=== PATIENT | male | born 1965 | race Caucasian/White ===

== ENCOUNTER → 2021-07-07 | Outpatient (CLI) | payer BC, OTHER ==
--- NOTE | 2021-07-07 13:50 | PFTRPT ---
Site: [facility], [address] [place] [address], [id number] ID: [id number] Name: HENRY DRAKE Visit Date: 07/07/2021 Second ID: [id number] Referring Doctor: Tracey Regalado Reviewing Doctor: Ken Chaidez MD Sound Printer: Jose KELSEY RRT Age: 55 : 1965 Sex: Male Race: Height: 70.00 Inches Weight: 182.00 Lbs BSA: 2.01 Order IDs: [id number] Requested Test(s): <RESP-PFT.PFT B/A> Diagnosis: R06.02 test meet the ATS standards for acceptability and repeatability. Pt was given four puffs of albuterol for post bronchodilator. Review Status: Not Reviewed Pre-Bronch Post-Bronch Pred Actual %Pred Actual %Chng SPIROMETRY FVC (L) 4.87 4.33 88 4.49 3 FEV1 (L) 3.71 3.15 84 3.36 6 FEV1/FVC (%) 76 73 95 75 2 FEF 25% (L/sec) 7.41 6.33 85 7.38 16 FEF 50% (L/sec) 4.52 2.98 65 3.53 18 FEF 75% (L/sec) 1.48 0.67 45 1.07 59 FEF 25-75% (L/sec) 3.13 2.04 65 2.80 37 FEF Max (L/sec) 9.44 8.17 86 8.56 4 FIVC (L) 4.04 4.09 1 FIF 50% (L/sec) 4.80 5.52 114 5.00 -9 FIF Max (L/sec) 5.53 5.07 -8 MVV (L/min) 144 110 76 Expiratory Time (sec) 7.47 6.57 -12 Back Extrap Vol (L) 0.15 0.15 Time To FEFmax (sec) 0.088 0.092 3 LUNG VOLUMES SVC (L) 4.80 4.15 86 IC (L) 3.37 2.83 83 ERV (L) 1.43 1.32 92 TGV (L) 3.61 4.24 117 RV (Pleth) (L) 2.18 2.91 133 TLC (Pleth) (L) 6.98 7.07 101 RV/TLC (Pleth) (%) 32 41 128 DIFFUSION DLCOunc (ml/min/mmHg) 29.15 27.22 93 DLCOcor (ml/min/mmHg) 29.15 27.54 94 DL/VA (ml/min/mmHg/L) 4.18 4.53 108 VA (L) 6.98 6.08 87 BHT (sec) 9.91 IVC (L) 4.01 TLC (SB) (L) 6.23 AIRWAYS RESISTANCE Raw (cmH2O/L/s) 1.45 0.91 62 Gaw (L/s/cmH2O) 1.03 1.11 107 sRaw (cmH2O*s) 4.76 3.86 81 sGaw (1/cmH2O*s) 0.20 0.26 130 BLOOD GASES Hgb (gm/dL) 14.2
--- NOTE | 2021-07-07 15:08 | REP ---
INDICATION: SHORTNESS OF BREATH- PFT TESTING APPT @ 1300 COMPARISON: None. TECHNIQUE: PA and lateral. FINDINGS: The mediastinum and cardiac silhouette are normal. The lung sanford are clear and without acute consolidation, effusion, or pneumothorax. The skeletal structures are intact and normal. IMPRESSION: No acute cardiopulmonary process. <Electronically signed by Garo Cash > 07/07/21 [id number]
== END ==
LOC: M CARPUL 13:07
PROVIDERS: ATTEND Nurse Practitioner Adult Health
DX: R06.02 Shortness of breath (principal)